=== PATIENT | female | born 1980 | race American Indian/Alaskan Native ===

== ENCOUNTER 2016-08-13 10:47 | Emergency (ER) | payer MEDICARE ==
[2016-08-13 11:35] LABS: Hematocrit 32.6 % (30.3-42.9); Hemoglobin 10.9 gm/dl (10.1-14.3); Mean Corpuscular HGB Conc 34 % (30-34); Mean Corpuscular Hemoglobin 32 pg (28-32); Mean Corpuscular Volume 97 fl (79-97); Red Blood Count 3.36 M/mm3 (3.65-5.03); Red Cell Distribution Width 15.7 % (13.2-15.2); White Blood Count 5.1 K/mm3 (4.5-11.0)
[2016-08-13 11:52] LABS: Alanine Aminotransferase 16 units/L (7-56); Albumin 3.2 g/dL (3.9-5); Albumin/Globulin Ratio 0.6 %; Alkaline Phosphatase 107 units/L (35-129); Anion Gap 15 mmol/L; BUN/Creatinine Ratio 11.66; Blood Urea Nitrogen 7 mg/dL (7-17); Calcium 8.6 mg/dL (8.4-10.2); Carbon Dioxide 27 mmol/L (22-30); Chloride 102.9 mmol/L (98-107); Glucose 103 mg/dL (65-100); Lipase 15 units/L (13-60); Potassium 3.5 mmol/L (3.6-5.0); Sodium 141 mmol/L (137-145); Total Protein 8.8 g/dL (6.3-8.2)
[2016-08-13 12:07] LABS: Platelet Count 64 K/mm3 (140-440)
[2016-08-13 12:34] LABS: Bilirubin,Urine NEG (Negative); Blood,Urine MOD (Negative); Ketones,Urine NEG (Negative); Leukocyte Esterase,Urine SM (Negative); Nitrite,Urine NEG (Negative); Protein,Urine <15 mg/dL mg/dL (Negative)
[2016-08-13 13:06] LABS: Basophils % (Manual) 0 % (0.0-1.8); Blastocytes % (Manual) 0 %
[2016-08-13 13:07] LABS: Diff Status Complete; Platelet Estimate Appears Decreased
[2016-08-13 13:08] LABS: Hypochromasia 1+
[2016-08-13 15:55] VITALS: BP 154/86
== END 2016-08-13 22:25 | disposition left against medical advice (07) ==
LOC: ED 10:47
DX: R10.9 Unspecified abdominal pain (principal); R51 Headache; R42 Dizziness and giddiness; Z53.21 Procedure and treatment not carried out due to patient leaving prior to being seen by health care provider
CPT/HCPCS: 36415; 80053; 81001; 81025; 83690; 85007; 85025

== ENCOUNTER 2019-05-28 11:09 | Emergency (ER) | payer MEDICARE ==
--- NOTE | 2019-05-28 11:17 | Event Note ---
ED Screening Note ED Screening Note: 2 weeks right hip pain This initial assessment/diagnostic orders/clinical plan/treatment(s) is/are subject to change based on patients health status, clinical progression and re- assessment by fellow clinical providers in the ED. Further treatment and workup at subsequent clinical providers discretion. Patient/guardian urged not to elope from the ED as their condition may be serious if not clinically assessed and managed. Initial orders include: xr hip
[2019-05-28] MEDS ORDERED: KETOROLAC 60 MG/2 ML INJ IM ONE (11:38)
--- NOTE | 2019-05-28 11:43 | Emergency Department Report ---
ED Lower Extremity HPI - General Chief Complaint: Extremity Injury, Lower Stated Complaint: RT LEG PAIN Time Seen by Provider: 05/28/19 11:38 Source: patient, EMS Mode of arrival: Wheelchair Limitations: Physical Limitation - History of Present Illness Initial Comments: 38-year-old [place] female resents emerged department complaining of atraumatic right leg pain involving the entire right lower extremity. Pain can start in the right upper leg around in the hip and antimicrosomal with down to the foot and ankle. She reports no trauma. Reports no known swelling no numbness or tingling. No fever, chills, sweats no chest pain or palpitations no nausea or vomiting. -: Gradual Injury: Hip: Right, Leg: Right Type of Injury: unknown Place: home Severity: mild, moderate Improves With: nothing Worsens With: weight bearing, movement, palpation Associated Symptoms: able to partially bear weight. denies: numbness, tingling - Related Data Previous Rx's Medication Instructions Recorded Last Taken Type Ketorolac [Toradol] 10 mg PO Q8HR PRN #20 tablet 05/28/19 Unknown Rx Allergies Allergy/AdvReac Type Severity Reaction Status Date / Time Shellfish Allergy Angioedema Uncoded 05/28/19 11:09 Tomatos Allergy Rash Uncoded 05/28/19 11:09 ED Review of Systems ROS: Stated complaint: RT LEG PAIN Other details as noted in HPI Comment: All other systems reviewed and negative ED Past Medical Hx - Past Medical History Hx Psychiatric Treatment: Yes Hx Asthma: Yes Additional medical history: Sickle cell trait, anemia - Surgical History Additional Surgical History: 2 hip replacements - Social History Smoking Status: Never Smoker Substance Use Type: None - Medications Home Medications: Home Medications Medication Instructions Recorded Confirmed Last Taken Type Ketorolac [Toradol] 10 mg PO Q8HR PRN #20 tablet 05/28/19 Unknown Rx ED Physical Exam - General Limitations: Physical Limitation General appearance: alert, in no apparent distress - Head Head exam: Present: atraumatic, normocephalic - Eye Eye exam: Present: normal appearance, PERRL, EOMI Pupils: Present: normal accommodation - ENT ENT exam: Present: normal exam, mucous membranes moist - Neck Neck exam: Present: normal inspection, full ROM - Respiratory Respiratory exam: Present: normal lung sounds bilaterally. Absent: respiratory distress, wheezes, rales, rhonchi, chest wall tenderness, accessory muscle use - Cardiovascular Cardiovascular Exam: Present: regular rate, normal rhythm. Absent: systolic murmur, diastolic murmur, rubs, gallop - GI/Abdominal GI/Abdominal exam: Present: soft, normal bowel sounds - Extremities Exam Extremities exam: Present: normal inspection, tenderness, normal capillary refill, other - Expanded Lower Extremity Exam Right Upper Leg exam: Present: normal inspection, tenderness. Absent: swelling, laceration, ecchymosis Lower Leg exam: Present: tenderness Ankle exam: Present: normal inspection, tenderness. Absent: crepidus, dislocation, erythema, anterior draw sign Foot/Toe exam: Present: normal inspection Neuro vascular tendon exam: Present: no vascular compromise. Absent: abnormal cap refill, motor deficit, sensory deficit, tendon deficit, extremity cold to touch - Back Exam Back exam: Present: normal inspection. Absent: CVA tenderness (R), CVA tenderness (L) - Neurological Exam Neurological exam: Present: alert, oriented X3, CN II-XII intact, normal gait, motor sensory deficit - Psychiatric Psychiatric exam: Present: normal affect, normal mood - Skin Skin exam: Present: warm, dry, intact, normal color. Absent: rash ED Course Vital Signs 05/28/19 05/28/19 05/28/19 11:14 12:04 12:31 Temperature 98.6 F Pulse Rate 112 H Respiratory 20 18 18 Rate Blood Pressure 119/77 O2 Sat by Pulse 100 Oximetry Critical care attestation.: If time is entered above; I have spent that time in minutes in the direct care of this critically ill patient, excluding procedure time. ED Disposition Clinical Impression: Lower extremity pain Disposition: - TO HOME OR SELFCARE Condition: Stable Instructions: Arthralgia (ED), Lumbar Radiculopathy (ED) Prescriptions: Ketorolac [Toradol] 10 mg PO Q8HR PRN #20 tablet PRN Reason: Pain Referrals: EVELINA MAYA MD [Primary Care Provider] - 3-5 Days
--- NOTE | 2019-05-28 12:13 | XRay Report ---
Right hip-4 total views INDICATION: right hip pain. COMPARISON: None. IMPRESSION: Bilateral hip arthroplasties are intact with no hardware complication or acute osseous a bnormality. There are corticated ossific densities over the right greater trochanter which are chroni c. Signer Name: Kasi Argueta MD Signed: 05/28/2019 12:09 PM Workstation Name: [id number]
--- NOTE | 2019-05-28 13:56 | Vascular Lab Report ---
DUPLEX DOPPLER LOWER EXTREMITY VEINS, RIGHT INDICATION: Right leg pain and edema.. Sickle cell trait TECHNIQUE: Duplex doppler imaging was performed through the veins of the right lower extremity using venous comp ression and other maneuvers. COMPARISON: None available. FINDINGS: Common femoral vein: Negative. Superficial femoral vein: Negative. Popliteal vein: Negative. Calf veins: Negative. Additional findings: There is no evidence of a popliteal cyst or other abnormality. IMPRESSION: No sonographic evidence for DVT in the right lower extremity. Signer Name: Moi Persaud MD Signed: 05/28/2019 1:52 PM Workstation Name: [id number]
[2019-05-28 15:41] VITALS: BP 103/63
== END 2019-05-28 15:28 | disposition home or self-care (01) ==
LOC: ED 11:09
DX: M79.604 Pain in right leg (principal); J45.909 Unspecified asthma, uncomplicated
CPT/HCPCS: 36415; 73502; 85379; 93971; 96372; 99285; J1885